=== PATIENT | male | born 1990 | race Caucasian/White ===

== ENCOUNTER 2022-02-21 17:45 | Emergency (ER) | payer OTHER | END 2022-02-21 18:15 | disposition left against medical advice (07) | LOC: VM.ED 17:45 | DX: Z53.21 Procedure and treatment not carried out due to patient leaving prior to being seen by health care provider (principal) ==

== ENCOUNTER 2025-01-19 18:30 | Emergency (ER) | payer OTHER ==
[2025-01-19] MEDS ORDERED: Sodium Chloride 0.9% 10 ML Syringe FLUSH PRN (19:10)
[2025-01-19 19:19] LABS: BASOPHILS ABSOLUTE AUTO 0.1 x10^3/uL (0.0-0.2); BASOPHILS PERCENT AUTO 0.5 % (0.2-1.2); EOSINOPHILS ABSOLUTE AUTO 0.4 x10^3/uL (0.0-0.5); EOSINOPHILS PERCENT AUTO 3.5 % (0.0-4.0); IMMATURE GRAN ABSOLUTE AUTO 0.02 x10^3/uL (0.00-0.07); IMMATURE GRAN PERCENT AUTO 0.20 % (0.00-0.43); LYMPHOCYTES ABSOLUTE AUTO 3.5 x10^3/uL (1.0-4.8); LYMPHOCYTES PERCENT AUTO 30.7 % (25.0-50.0); MONOCYTES ABSOLUTE AUTO 0.8 x10^3/uL (0.0-0.8); MONOCYTES PERCENT AUTO 6.8 % (2.0-11.0); NEUTROPHILS ABSOLUTE AUTO 6.6 x10^3/uL (1.8-7.7); NEUTROPHILS PERCENT AUTO 58.3 % (50.0-80.0); PLATELET COUNT,PLT 216 x10^3/uL (130-400); RED BLOOD CELL COUNT 5.08 x10^6/uL (4.5-6.0); WHITE BLOOD CELL COUNT,WBC 11.3 x10^3/uL (4.0-10.0)
[2025-01-19 19:31] LABS: A/G RATIO 0.85; ALANINE AMINOTRANSFERASE,ALT 44 U/L (16-63); ASPARTATE AMNIOTRANSFERASE,AST 26 U/L (15-37); BILIRUBIN TOTAL 0.4 mg/dL (0.2-1.0); BLOOD UREA NITROGEN,BUN 16 mg/dL (7-18); CARBON DIOXIDE,CO2 29 mmol/L (21-32); CHLORIDE,CL 101 mmol/L (98-107); CREATININE 1.1 mg/dL (0.70-1.30); EST CRCL DRUG DOSING (CG) 99.83 mL/min; GLUCOSE RANDOM 120 mg/dL (70-99); POTASSIUM,K 3.3 mmol/L (3.5-5.1); PROTEIN TOTAL,TP 7.4 g/dL (6.4-8.2); SODIUM,NA 138 mmol/L (136-145)
[2025-01-19 19:32] LABS: ESTIMATED GFR 90 mL/min (>=60); ETHANOL BLOOD MEDICAL < 3 mg/dL (0-3)
[2025-01-19 19:50] LABS: INR 0.9 (0.9-1.1); PTT,PARTIAL THROMBOPLSTIN TIME 30.7 SEC (23.5-33.2)
[2025-01-19] MEDS: Potassium Chloride 20 MEQ Tab.ER PO ONE (20:05)
[2025-01-19] MEDS: LORazepam 2 MG/ML SDV IVPUSH ONE (20:54)
== END 2025-01-19 21:55 | disposition home or self-care (01) ==
LOC: VM.ED 18:30
DX: F41.9 Anxiety disorder, unspecified (principal); E87.6 Hypokalemia; Z88.0 Allergy status to penicillin; Z88.2 Allergy status to sulfonamides; Z79.899 Other long term (current) drug therapy
CPT/HCPCS: 36415; 71045; 80053; 80307; 83735; 84484; 85025; 85610; 85730; 93005; 93010; 96374; 99284; 99285-25; A9270-GY; J2060